=== PATIENT | female | born 1995 | race American Indian/Alaskan Native ===

== ENCOUNTER 2020-01-05 09:34 | Emergency (ER) | payer SELFPAY ==
[2020-01-05 09:41] VITALS: BP 126/74
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
[2020-01-05 10:33] LABS: Bilirubin,Urine NEG (Negative); Blood,Urine LG (Negative); Mucus,Urine FEW /HPF
[2020-01-05 10:36] LABS: Color,Urine Amber (Yellow); RBC,Urine > 182.0 /HPF (0.0-6.0)
[2020-01-05 10:37] LABS: HCG Qualitative,Urine Positive (Negative)
[2020-01-05 11:05] LABS: Basophils % (Auto) 0.7 % (0.0-1.8); Eosinophils # (Auto) 0.2 K/mm3 (0.0-0.4); Eosinophils % (Auto) 4.6 % (0.0-4.3); Hematocrit 38.1 % (30.3-42.9); Hemoglobin 12.4 gm/dl (10.1-14.3); Lymphocytes # (Auto) 1.4 K/mm3 (1.2-5.4); Lymphocytes % (Auto) 33.7 % (13.4-35.0); Mean Corpuscular HGB Conc 33 % (30-34); Mean Corpuscular Volume 89 fl (79-97); Monocytes # (Auto) 0.5 K/mm3 (0.0-0.8); Monocytes % (Auto) 11.3 % (0.0-7.3); Platelet Count 348 K/mm3 (140-440); Red Cell Distribution Width 16.7 % (13.2-15.2)
[2020-01-05 11:21] LABS: Alanine Aminotransferase 8 units/L (7-56); Albumin 4.1 g/dL (3.9-5); BUN/Creatinine Ratio 14; Blood Urea Nitrogen 7 mg/dL (7-17); Calcium 9.3 mg/dL (8.4-10.2); Hemolysis Index 11
--- NOTE | 2020-01-05 11:52 | Ultrasound Report ---
ULTRASOUND OBSTETRIC INDICATION: with vaginal bleeding. Last menstrual period on 11/25/2019. TECHNIQUE: Transabdominal and Transvaginal. COMPARISON: None available. FINDINGS: GESTATIONAL SAC: A possible small intrauterine gestational sac measures 0.5 x 0.3 cm, consistent with an estimated age of 5 weeks, 2 days. YOLK SAC: None seen. EMBRYO/FETUS: None seen. ADNEXA: No significant abnormality. FREE FLUID: None. ADDITIONAL FINDINGS: None. IMPRESSION: Possible early single intrauterine without sonographic identification of a yolk sac or feta l pole. Close clinical and imaging follow-up is recommended. Signer Name: Ganesh Hoffman MD Signed: 01/05/2020 11:48 AM Workstation Name: [id number]
== END 2020-01-05 12:41 | disposition home or self-care (01) ==
LOC: ED 09:34
DX: O20.0 Threatened abortion (principal); Z3A.01 Less than 8 weeks gestation of pregnancy; Z98.890 Other specified postprocedural states; Z79.899 Other long term (current) drug therapy
CPT/HCPCS: 36415; 76801; 76817; 80053; 81001; 81025; 84702; 85025; 86900; 86901; 87086